=== PATIENT | male | born 1965 ===

== ENCOUNTER 2019-01-31 11:27 | Observation (INO) | payer BC ==
[~2019-01-31] VITALS: Ht 175.3 cm; Wt 121.0 kg
[~2019-01-31 11:27] MED LIST: ABAC300; ASPI81CH PO; Aspirin EC81 MG PO; Diovan Hct 1601 EACH PO; LORA10 PO; PANT40 PO; PRAV20 PO
[2019-01-31 12:25] LABS: BASOPHILS ABSOLUTE AUTO 0.04 K/mm3 (0.00-0.23); BASOPHILS PERCENT AUTO 1 % (0-2); EOSINOPHILS ABSOLUTE AUTO 0.04 K/mm3 (0.00-0.68); EOSINOPHILS PERCENT AUTO 1 % (0-6); Hematocrit 48.4 % (37.0-53.0); Hemoglobin 15.2 g/dL (13.5-17.5); IMMATURE GRAN ABSOLUTE AUTO 0.01 K/mm3 (0.00-0.10); IMMATURE GRAN PERCENT AUTO 0 % (0-1); LYMPHOCYTES ABSOLUTE AUTO 1.65 K/mm3 (0.84-5.20); LYMPHOCYTES PERCENT AUTO 20 % (21-46); MONOCYTES ABSOLUTE AUTO 0.64 K/mm3 (0.16-1.47); MONOCYTES PERCENT AUTO 8 % (4-13); Mean Corpuscular HGB 27.4 pg (26.0-34.0); Mean Corpuscular HGB Conc 31.4 g/dL (31.5-36.5); Mean Corpuscular Volume 87 fL (80-100); NEUTROPHILS ABSOLUTE AUTO 5.88 K/mm3 (1.96-9.15); NEUTROPHILS PERCENT AUTO 71 % (41-73); Platelet Count 250 K/mm3 (150-400); RDW Standard Deviation 41.7 fL (35.1-46.3); Red Blood Cell Count 5.54 M/mm3 (4.30-5.90); White Blood Cell Count 8.26 K/mm3 (4.00-11.30)
[2019-01-31 12:41] LABS: International Normalized Ratio 0.99; Prothrombin Time Results 10.5 Sec (9.7-11.5)
[2019-01-31 12:43] LABS: Alanine Aminotransfer (ALT/SGP 34 U/L (12-78); Albumin, Blood 4.2 g/dL (3.4-5.0); Albumin/Globulin Ratio 1.1 (0.8-1.8); Alk Phos 90 U/L (50-136); Anion Gap 7 mmol/L (6-16); Aspartate Aminotrans (AST/SGOT 21 U/L (12-37); Bilirubin, Total 0.6 mg/dL (0.1-1.0); Blood Urea Nitrogen 14 mg/dL (8-24); Bun/Creatinine Ratio 15.9 (12.0-20.0); CO2, Blood 27 mmol/L (21-32); Chloride, Blood 106 mmol/L (98-108); Creatinine, Blood 0.88 mg/dL (0.60-1.20); Globulin, Blood 3.7 g/dL (2.2-4.0); Glomerular Filtration Rate >60 (60-); Glucose, Blood 103 mg/dL (70-99); Potassium, Blood 3.7 mmol/L (3.5-5.5); Sodium, Blood 140 mmol/L (136-145); Total Protein, Blood 7.9 g/dL (6.4-8.2)
--- NOTE | 2019-01-31 18:30 | NUR ---
SHIFT SUMMARY PT A NEW ADMISSION THIS EVENING. NO ACUTE CHANGES AT THIS TIME. PT AT MRI. WILL CONTINUE TO MONITOR AND REPORT TO ONCOMING RN.
[2019-02-01 04:46] LABS: BASOPHILS ABSOLUTE AUTO 0.05 K/mm3 (0.00-0.23); BASOPHILS PERCENT AUTO 1 % (0-2); EOSINOPHILS ABSOLUTE AUTO 0.11 K/mm3 (0.00-0.68); EOSINOPHILS PERCENT AUTO 1 % (0-6); Hematocrit 44.4 % (37.0-53.0); Hemoglobin 14.1 g/dL (13.5-17.5); IMMATURE GRAN ABSOLUTE AUTO 0.02 K/mm3 (0.00-0.10); IMMATURE GRAN PERCENT AUTO 0 % (0-1); LYMPHOCYTES ABSOLUTE AUTO 2.28 K/mm3 (0.84-5.20); LYMPHOCYTES PERCENT AUTO 26 % (21-46); MONOCYTES ABSOLUTE AUTO 0.91 K/mm3 (0.16-1.47); MONOCYTES PERCENT AUTO 11 % (4-13); Mean Corpuscular HGB 27.6 pg (26.0-34.0); Mean Corpuscular HGB Conc 31.8 g/dL (31.5-36.5); Mean Corpuscular Volume 87 fL (80-100); Mean Platelet Volume 11.2 fL (9.1-12.4); NEUTROPHILS ABSOLUTE AUTO 5.31 K/mm3 (1.96-9.15); NEUTROPHILS PERCENT AUTO 61 % (41-73); Platelet Count 249 K/mm3 (150-400); RDW Coefficient Variation 13.1 % (11.7-14.2); RDW Standard Deviation 41.3 fL (35.1-46.3); Red Blood Cell Count 5.11 M/mm3 (4.30-5.90); White Blood Cell Count 8.68 K/mm3 (4.00-11.30)
[2019-02-01 04:58] LABS: Anion Gap 6 mmol/L (6-16); Blood Urea Nitrogen 12 mg/dL (8-24); Bun/Creatinine Ratio 13.8 (12.0-20.0); CO2, Blood 29 mmol/L (21-32); Calcium, Blood 8.6 mg/dL (8.5-10.1); Chloride, Blood 106 mmol/L (98-108); Creatinine, Blood 0.87 mg/dL (0.60-1.20); Glomerular Filtration Rate >60 (60-); Glucose, Blood 104 mg/dL (70-99); Potassium, Blood 3.9 mmol/L (3.5-5.5); Sodium, Blood 141 mmol/L (136-145)
--- NOTE | 2019-02-01 05:05 | NUR ---
WAGE CONCILIATOR SUMMARY PT A/OX4. ABLE TO STATE FULL NAME, , WHERE HE IS, AND WHY HE IS HERE. PT KNOWS THE MONTH, YEAR, HOW MANY CHILDREN HE HAS, THE PRESIDENT DURING EACH NEURO CHECK. NO WEAKNESS OR FACE DROOP NOTICED. PERRLA. FAMILY VISITED. STAYED WITH PT THROUGHOUT THE NIGHT. HOWEVER, PT STATES HE "FEELS CONFUSED" WHEN ASKED HOW HE WAS DOING. HAS SHORT TERM MEMORY AT TIMES. HE FORGOT THAT THE DOCTOR HAS CAME IN THE ROOM TO SEE HIM YESTERDAY MORNING. COMPLAINED OF HEADACHE 2 TIMES THROUGHOUT SHIFT. PT STATES IT'S A "NAGGY" AND "ACHY" HEADACHE AROUND THE HEAD LIKE A HEADBAND. PAIN MED GIVEN PER EMAR. SLEPT WELL TONIGHT. CALLS APPROPRIATELY. VSS. WILL CONTINUE TO [facility]
[2019-02-01] MEDS ORDERED: ASPI81CH PO (13:07)
[2019-02-01] MEDS ORDERED: Dyazide 37.5-21 EACH PO (13:07)
--- NOTE | 2019-02-01 13:23 | NUR ---
PATIENT DISCHARGED HOME, ALL IV LINES DISCONTINUED. MEDICATIONS FAXED TO [facility].
== END 2019-02-01 13:33 | disposition home or self-care (01) ==
LOC: ER 11:27 → MEDS 11:28 → ENPENDDIS 02-01 13:12 → MEDS 02-01 13:33
PROVIDERS: Physician Assistant; ADMIT Hospitalist
DX: G45.4 Transient global amnesia (principal); I10 Essential (primary) hypertension; E78.5 Hyperlipidemia, unspecified; Z79.82 Long term (current) use of aspirin; Z79.899 Other long term (current) drug therapy
CPT/HCPCS: 36415; 70140; 70450; 70551; 80048; 80053; 82947; 85025; 85610; 93005; 93010; 93306; 93880; 96372; 99285-25; A9270; G0378; J1650